=== PATIENT | male | born 1960 | race Caucasian/White ===

== ENCOUNTER 2019-07-31 07:04 | Day surgery (SDC) | payer OTHER, MEDICARE, MEDICAID ==
[~2019-07-31] VITALS: Ht 160 cm; Wt 63.6 kg
[~2019-07-31 07:04] MED LIST: ALEN70TA10 PO; CALC-1194 PO; CYAN100056 IM; DOCU250C91 PO; ESLI600T PO; FERR-89 PO; LACO100 PO; MELA5TAB3 PO; MULT-12 PO; PARO10TA89 PO; PARO20TA24 PO; PETR18JE3 TP; RINGERS SOLUTION,LACTATED 1,000 ML IV ONE; RISP.5 PO; RISP2 PO; RISP3 PO
[2019-07-31] MEDS ORDERED: DEXAMETHASONE SOD PHOS 4 MG/ML VIAL IVP ONE (07:05)
[2019-07-31] MEDS ORDERED: ROCURONIUM BROMIDE 10 MG/ML 5 ML VIAL IVP ONE (07:05)
[2019-07-31] MEDS ORDERED: LIDOCAINE/PF 2% 5 ML VIAL IM ONE (07:05)
[2019-07-31] MEDS ORDERED: ONDANSETRON HCL 4 MG/2 ML VIAL IVP ONE (07:05)
[2019-07-31] MEDS ORDERED: PROPOFOL 1% 20 ML VIAL IVP ONE (07:05)
[2019-07-31] MEDS ORDERED: RINGERS SOLUTION,LACTATED 1,000 ML IV ONE ×2 (07:13→13:27)
[2019-07-31] MEDS ORDERED: AMPICILLIN SODIUM 1 GM/VIAL ONE (07:30)
[2019-07-31] MEDS ORDERED: SODIUM CHLORIDE 0.9% 100 ML ONE (07:30)
[2019-07-31 09:26] LABS: ANION GAP 4 mmol/L (8-16); CALCIUM, TOTAL 8.8 mg/dL (8.8-10.5); CARBON DIOXIDE 29 mmol/L (22-29); CHLORIDE 99 mmol/L (98-107); GLOMERULAR FILTR. RATE CALC > 60 mL/min (>60); GLUCOSE,RANDOM 89 mg/dL (70-110); POTASSIUM 4.5 mmol/L (3.5-5.1); SODIUM SERUM 132 mmol/L (136-145); UREA NITROGEN, BLOOD 13 mg/dL (7-18)
[2019-07-31 09:35] LABS: ALANINE AMINOTRANSFERASE 50 U/L (12-78); ALBUMIN 3.5 g/dL (3.4-5.0); ALKALINE PHOSPHATASE 194 U/L (46-116); ASPARTATE AMINOTRANSFERASE 28 U/L (15-37); BILIRUBIN,TOTAL 0.3 mg/dL (0.1-1.0); TOTAL PROTEIN, SERUM 7.3 g/dL (6.4-8.2)
[2019-07-31] MEDS ORDERED: SODIUM CHLORIDE 0.9% 1,000 ML IV ONE (10:28)
[2019-07-31] MEDS ORDERED: NALOXONE HCL 1 MG/ML 2 ML SYG ONE (10:29)
[2019-07-31 11:54] LABS: BASOPHILS % (AUTO) 1.2 % (0.0-2.0); HEMOGLOBIN 15.2 g/dL (13.5-17.5); LYMPHOCYTES # (AUTO) 1.2 K/uL (1.0-4.8); LYMPHOCYTES % (AUTO) 16.9 % (22.0-44.0); MEAN CORPUSCULAR HEMOGLOBIN 29.1 pg (26.0-34.0); MEAN CORPUSCULAR HGB CONC 33.1 G/dL (31.0-37.0); MEAN CORPUSCULAR VOLUME 88 fL (80-100); MONOCYTES # (AUTO) 0.7 K/uL (0.1-1.0); MONOCYTES % (AUTO) 9.2 % (2.0-9.0); NEUTROPHILS # (AUTO) 5.3 K/uL (1.8-7.7); NEUTROPHILS % (AUTO) 71.7 % (40.0-70.0); PLATELET COUNT (AUTO) 196 K/uL (150-450); RED BLOOD CELL COUNT(AUTO) 5.24 MIL/uL (4.50-5.90); RED CELL DISTRIBUTION WIDTH 13.5 % (11.5-14.5)
[2019-07-31] MEDS ORDERED: MEPERIDINE-PF 25 MG/ML VIAL IVP PRN (13:15)
[2019-07-31] MEDS ORDERED: HYDROmorphone 2 MG/ML SYRINGE IVP PRN (13:15)
[2019-07-31] MEDS ORDERED: FentaNYL CITRATE-PF 100 MCG/2 ML VIAL IVP PRN (13:15)
[2019-07-31] MEDS ORDERED: OXYGEN THERAPY IH SCH (20:00)
== END 2019-07-31 15:15 | disposition home or self-care (01) ==
LOC: SURGERY 07:04
PROVIDERS: ATTEND Dentist General Practice
DX: K02.9 Dental caries, unspecified (principal); K05.30 Chronic periodontitis, unspecified; G40.909 Epilepsy, unspecified, not intractable, without status epilepticus; E78.5 Hyperlipidemia, unspecified; D64.9 Anemia, unspecified; Z88.8 Allergy status to other drugs, medicaments and biological substances; Z79.01 Long term (current) use of anticoagulants; Z79.899 Other long term (current) drug therapy
CPT/HCPCS: 36415; 41899; 71045; 80053; 85025; 85610; 85730; 93005; J0290; J1100; J2405; J2704; J3490 ×2; J7030; J7050; J7120; J2310

== ENCOUNTER → 2021-09-01 | Day surgery (SDC) | payer OTHER, MEDICARE, MEDICAID ==
[~2021-09-01] VITALS: Ht 160 cm; Wt 72.7 kg
[~2021-09-01] MED LIST changes: -ALEN70TA10 PO; +ALEN70TA65 PO; +AMPICILLIN SODIUM 2 GM/NS 100 ML IV ONE; +DOCU-350 PO; -DOCU250C91 PO; +FentaNYL CITRATE PF 100 MCG/2 ML VIAL IVP ONE; +FentaNYL CITRATE PF 100 MCG/2 ML VIAL IVP PRN; +HYDROmorphone 2 MG/ML VIAL IVP PRN; -MELA5TAB3 PO; +MELA5TAB40 PO; +MEPERIDINE-PF 25 MG/ML VIAL IVP PRN; -MULT-12 PO; +MULT-13 PO; +PARO-38 PO; -PARO20TA24 PO; -RISP.5 PO; +RISP0.5T39 PO; -RISP2 PO; +RISP2TAB45 PO; -RISP3 PO; +RISP3TAB35 PO
[2021-09-01 07:03] LABS: COVID AG,FIA SOURCE NASOPHARYNGEAL
[2021-09-01 07:13] LABS: ANION GAP 6 mmol/L (8-16); CALCIUM, TOTAL 8.5 mg/dL (8.8-10.5); CARBON DIOXIDE 28 mmol/L (22-29); CHLORIDE 98 mmol/L (98-107); CREATININE 0.58 mg/dL (0.60-1.30); GLOMERULAR FILTR. RATE CALC > 60 mL/min (>60); GLUCOSE,RANDOM 90 mg/dL (70-110); POTASSIUM 4.3 mmol/L (3.5-5.1); SODIUM SERUM 132 mmol/L (136-145); UREA NITROGEN, BLOOD 8 mg/dL (7-18)
[2021-09-01 07:15] LABS: BASOPHILS % (AUTO) 1.2 % (0.0-2.0); EOSINOPHILS % (AUTO) 1.1 % (1.0-6.0); HEMATOCRIT 40.9 % (41-53); HEMOGLOBIN 13.8 g/dL (13.5-17.5); LYMPHOCYTES % (AUTO) 13.9 % (22.0-44.0); MEAN CORPUSCULAR HEMOGLOBIN 29.3 pg (26.0-34.0); MEAN CORPUSCULAR HGB CONC 33.9 G/dL (31.0-37.0); MEAN CORPUSCULAR VOLUME 87 fL (80-100); MONOCYTES # (AUTO) 0.6 K/uL (0.1-1.0); MONOCYTES % (AUTO) 7.8 % (2.0-9.0); NEUTROPHILS # (AUTO) 5.4 K/uL (1.8-7.7); PLATELET COUNT (AUTO) 221 K/uL (150-450); RED BLOOD CELL COUNT(AUTO) 4.73 MIL/uL (4.50-5.90); RED CELL DISTRIBUTION WIDTH 13.1 % (11.5-14.5)
[2021-09-01 07:18] LABS: ALANINE AMINOTRANSFERASE 24 U/L (12-78); ALBUMIN 3.5 g/dL (3.4-5.0); ALKALINE PHOSPHATASE 149 U/L (46-116); ASPARTATE AMINOTRANSFERASE 14 U/L (15-37); BILIRUBIN,TOTAL 0.2 mg/dL (0.1-1.0); TOTAL PROTEIN, SERUM 7.4 g/dL (6.4-8.2)
[2021-09-01 08:00] LABS: PROTHROMBIN TIME 10.3 SEC (9.4-11.6)
== END | disposition home or self-care (01) ==
LOC: SURGERY 06:13
PROVIDERS: ATTEND Dentist General Practice
DX: K02.9 Dental caries, unspecified (principal); K05.30 Chronic periodontitis, unspecified; K03.6 Deposits [accretions] on teeth; G40.909 Epilepsy, unspecified, not intractable, without status epilepticus; E78.5 Hyperlipidemia, unspecified; D64.9 Anemia, unspecified; Z79.899 Other long term (current) drug therapy; Z98.890 Other specified postprocedural states; Z88.1 Allergy status to other antibiotic agents; Z88.8 Allergy status to other drugs, medicaments and biological substances; Z79.01 Long term (current) use of anticoagulants
CPT/HCPCS: 36415; 41899; 71045; 80053; 85025; 85610; 85730; 87426; 93005; C9803; J0290; J3010; J7120

== ENCOUNTER → 2023-02-22 | Day surgery (SDC) | payer OTHER, MEDICARE, MEDICAID ==
[~2023-02-22] VITALS: Ht 160 cm; Wt 65.9 kg
[~2023-02-22] MED LIST changes: +CYAN-42 IM; -CYAN100056 IM; +DEXAMETHASONE SOD PHOS 4 MG/ML VIAL IVP ONE; +DIPH25TA51 PO; -FERR-89 PO; +FERR325T27 PO; -FentaNYL CITRATE PF 100 MCG/2 ML VIAL IVP ONE; -FentaNYL CITRATE PF 100 MCG/2 ML VIAL IVP PRN; +GLYCOPYRROLATE 0.2 MG/ML VIAL IM ONE; -HYDROmorphone 2 MG/ML VIAL IVP PRN; +LIDOCAINE/PF 2% 5 ML VIAL IM ONE; -MEPERIDINE-PF 25 MG/ML VIAL IVP PRN; +MIDAZOLAM HCL 5 MG/ML VIAL ONE; +ONDANSETRON HCL 4 MG/2 ML VIAL IVP ONE; +OXYGEN THERAPY IH SCH; +PROPOFOL 1% 20 ML VIAL IVP ONE; +ROCURONIUM BROMIDE 10 MG/ML 5 ML VIAL IVP ONE
== END | disposition still patient (30) ==
LOC: SURGERY 06:41
PROVIDERS: ATTEND Dentist General Practice
DX: K02.9 Dental caries, unspecified (principal); K05.30 Chronic periodontitis, unspecified; E78.00 Pure hypercholesterolemia, unspecified; M81.0 Age-related osteoporosis without current pathological fracture; G40.909 Epilepsy, unspecified, not intractable, without status epilepticus; E78.5 Hyperlipidemia, unspecified; K59.00 Constipation, unspecified; Z79.899 Other long term (current) drug therapy; D64.9 Anemia, unspecified; Z88.8 Allergy status to other drugs, medicaments and biological substances
CPT/HCPCS: 41899; 71045; 36415; 93005; J0290; J2704; J1100; J3490 ×3; J2405; J2250; J7120